=== PATIENT | male | born 1970 | race Caucasian/White ===

== ENCOUNTER 2018-05-08 23:56 | Emergency (ER) | END 2018-05-09 04:22 | disposition home or self-care (01) ==

== ENCOUNTER 2018-06-19 17:50 | Emergency (ER) | END 2018-06-20 01:00 | disposition left against medical advice (07) ==

== ENCOUNTER 2018-07-23 19:11 | Emergency (ER) | END 2018-07-23 20:55 | disposition home or self-care (01) ==

== ENCOUNTER 2018-08-01 21:57 | Inpatient (IN) | END 2018-08-09 18:48 | disposition home or self-care (01) | DRG 690 ==

== ENCOUNTER 2018-08-30 00:32 | Emergency (ER) | END 2018-08-30 05:55 | disposition home or self-care (01) ==

== ENCOUNTER 2018-11-07 18:56 | Emergency (ER) | payer SELFPAY ==
[~2018-11-07] VITALS: Ht 167.6 cm; Wt 78.1 kg
[~2018-11-07 18:56] MED LIST: FLUT1BLS INHALATION; MONT10TA24 PO; OMEP40CA6 PO; ONDA4TAB14 PO; PHEN-716 PO; TAMS-14 PO; ZOLP5TAB7 PO
[2018-11-07 18:59] VITALS: BP 109/69; PULSE 139; RESP 20; Ht 167.6 cm; Wt 78.1 kg
== END 2018-11-08 02:37 | disposition left against medical advice (07) ==
LOC: E/R 18:56
DX: Z53.21 Procedure and treatment not carried out due to patient leaving prior to being seen by health care provider (principal)

== ENCOUNTER 2019-06-12 17:48 | Emergency (ER) | payer OTHER ==
[~2019-06-12] VITALS: Ht 167.6 cm; Wt 79.2 kg
[~2019-06-12 17:48] MED LIST changes: +ALBU18HF INHALATION; +DOXY100T20 PO; +IBUP800T48 PO
[2019-06-12 17:52] VITALS: Ht 167.6 cm; Wt 79.2 kg
[2019-06-12] MEDS ORDERED: SODIUM CHLORIDE 0.9% 1L BAG IV* STA (17:59)
[2019-06-12] MEDS ORDERED: AZITHROMYCIN 500MG/NS (PMX) 250 ML IV STA (17:59)
[2019-06-12] MEDS ORDERED: ACETAMINOPHEN 325 MG TAB PO STA (17:59)
[2019-06-12] MEDS ORDERED: ALBUTEROL 0.083% (NEB) 2.5 MG/3 ML AMP NEB STA (17:59)
[2019-06-12] MEDS ORDERED: DEXAMETHASONE 10 MG/ML 1 ML INJ IV STA (17:59)
[2019-06-12] MEDS ORDERED: CEFTRIAXONE 1 GM/50 ML (PMX) 50 ML IVPB STA (17:59)
[2019-06-12] MEDS ORDERED: IPRATROPIUM (NEB) 0.5 MG/2.5 ML AMP NEB STA (17:59)
--- NOTE | 2019-06-12 18:44 | ERD ---
ER Documentation Chief Complaint Chief Complaint FEVER, WEAKNESS, SOB, ONSET 2 WEEKS HPI 48-year-old gentleman with a history of asthma, kidney stones with a history of infected kidney stone who presents to the emergency room with multiple complaints over the last week. He describes generalized weakness and fatigue and malaise. He is having cough with associated fever that is not alleviated by his regular breathing treatments. Patient is also scrubbing right flank and right lower quadrant pain similar to pain in the past related to his stones. Pain is moderate at this time. Low-grade fever at triage. ROS All systems reviewed and are negative except as per history of present illness. Medications Home Meds Active Scripts Ibuprofen* (Motrin*) 800 Mg Tab, 800 MG PO Q6H PRN for PAIN AND OR ELEVATED TEMP, #30 TAB Prov:ALYSON ZULETA MD 06/12/19 Doxycycline Hyclate* (Doxycycline Hyclate*) 100 Mg Tablet.dr, 100 MG PO BID for 7 Days, TAB Prov:ALYSON ZULETA MD 06/12/19 Albuterol Sulfate* (Ventolin HFA*) 18 Gm Hfa.aer.ad, 2 PUFF INHALATION Q4H, #1 INHALER Prov:ALYSON ZULETA MD 06/12/19 Ondansetron (Ondansetron Odt) 4 Mg Tab.rapdis, 4 MG PO Q6H PRN for NAUSEA AND/OR VOMITING, #10 TAB Prov:NERIS GUEVARA 08/30/18 Tamsulosin Hcl* (Flomax*) 0.4 Mg Cap.er.24h, 0.4 MG PO HS for 30 Days, CAP Prov:PHYLLIS JENKINS MD 08/09/18 Reported Medications Fluticasone/Vilanterol (Breo Ellipta 200-25 Mcg INH) 1 Each Blst.w.dev, 1 PUFF INHALATION DAILY, #1 INHALER 08/01/18 Montelukast Sodium* (Montelukast Sodium*) 10 Mg Tablet, 10 MG PO QHS PRN for NEEDED, #30 TAB 08/01/18 Omeprazole* (Omeprazole*) 40 Mg Capsule.dr, 40 MG PO NEEDED, #30 CAP 08/01/18 Zolpidem Tartrate* (Zolpidem Tartrate*) 5 Mg Tablet, 5 MG PO QHS PRN for INSOMNIA, #30 TAB 08/01/18 Phenazopyridine Hcl* (Phenazopyridine Hcl*) 100 Mg Tablet, 100 MG PO TID, TAB 08/01/18 Allergies Allergies: Coded Allergies: No Known Drug Allergies (Verified Allergy, Mild, 08/01/18) PMhx/Soc History of Surgery: Yes (stent placement, kidney stone removal,nephrostomy) Anesthesia Reaction: No Hx Neurological Disorder: No Hx Respiratory Disorders: Yes (asthma) Hx Cardiac Disorders: No Hx Psychiatric Problems: No Hx Miscellaneous Medical Probl: No Hx Alcohol Use: No Hx Substance Use: No Hx Tobacco Use: No Smoking Status: Never smoker FmHx Family History: No diabetes Physical Exam Vitals Vital Signs Date Temp Pulse Resp B/P (MAP) Pulse Ox O2 O2 Flow FiO2 Time Delivery Rate 06/12/19 98.9 105 25 124/90 100 Room Air 19:02 (101) 06/12/19 100.6 18:15 06/12/19 110 18 97 21 18:06 06/12/19 100.6 114 20 136/81 97 17:52 (99) Physical Exam General: Well developed, well nourished, no acute distress Head: Normocephalic, atraumatic. Eyes: Pupils equally reactive, EOM intact ENT: Moist mucous membranes Neck: Supple, no lymphadenopathy Respiratory: Lungs clear bilaterally, no distress Cardiovascular: RRR, no murmurs, rubs, or gallops Abdominal: Soft, non-tender, non-distended, no peritoneal signs : Deferred MSK: No edema, no unilateral swelling, 5/5 strength Neurologic: Alert and oriented, moving all extremities, normal speech, no focal weakness, no cerebellar signs Skin: No rash Psych: Normal mood Result Diagram: 06/12/19 1805 06/12/19 180 Results 24 hrs Laboratory Tests Test 06/12/19 18:05 06/12/19 18:11 06/12/19 19:06 White Blood Count 9.9 10^3/ul Red Blood Count 5.61 10^6/ul Hemoglobin 15.9 g/dl Hematocrit 47.3 % Mean Corpuscular Volume 84.3 fl Mean Corpuscular Hemoglobin 28.3 pg Mean Corpuscular 33.6 g/dl Hemoglobin Concent Red Cell Distribution Width 13.7 % Platelet Count 247 10^3/UL Mean Platelet Volume 10.5 fl Immature Granulocytes % 0.300 % Neutrophils % 66.8 % Lymphocytes % 24.3 % Monocytes % 7.2 % Eosinophils % 1.1 % Basophils % 0.3 % Nucleated Red Blood Cells % 0.0 /100WBC Immature Granulocytes # 0.030 10^3/ul Neutrophils # 6.6 10^3/ul Lymphocytes # 2.4 10^3/ul Monocytes # 0.7 10^3/ul Eosinophils # 0.1 10^3/ul Basophils # 0.0 10^3/ul Nucleated Red Blood Cells # 0.0 10^3/ul Prothrombin Time 12.0 Sec Prothrombin Time Ratio 0.9 INR International 0.88 Normalized Ratio Activated Partial Thromboplast 28.6 Sec Time Sodium Level 141 mmol/L Potassium Level 3.8 mmol/L Chloride Level 107 mmol/L Carbon Dioxide Level 23 mmol/L Anion Gap 11 Blood Urea Nitrogen 16 mg/dl Creatinine 1.08 mg/dl Est Glomerular Filtrat > 60 mL/min Rate mL/min Glucose Level 103 mg/dl Calcium Level 9.6 mg/dl Total Bilirubin 0.4 mg/dl Direct Bilirubin 0.00 mg/dl Indirect Bilirubin 0.4 mg/dl Aspartate Amino 46 IU/L Transf (AST/SGOT) Alanine 84 IU/L Aminotransferase (ALT/SGPT) Alkaline Phosphatase 98 IU/L Troponin I < 0.012 ng/ml Total Protein 8.0 g/dl Albumin 4.6 g/dl Globulin 3.40 g/dl Albumin/Globulin Ratio 1.35 POC Venous Lactate 1.0 mmol/L Urine Color YELLOW Urine Clarity CLEAR Urine pH 5.0 Urine Specific [place] 1.013 Urine Ketones 1+ mg/dL Urine Nitrite NEGATIVE mg/dL Urine Bilirubin NEGATIVE mg/dL Urine Urobilinogen NEGATIVE mg/dL Urine Leukocyte Esterase NEGATIVE Gianni/ul Urine Microscopic RBC 1 /HPF Urine Microscopic WBC 3 /HPF Urine Hemoglobin 1+ mg/dL Urine Glucose NEGATIVE mg/dL Urine Total Protein NEGATIVE mg/dl Current Medications Medications Dose Sig/Abelardo Start Time Status Last (Trade) Ordered Route PRN Stop Time Admin Dose Reason Admin Sodium 2,380 ml BOLUS OVER 2 06/12/19 DC 06/12/19 Chloride HOURS STAT 17:59 18:16 (NS) IV* 06/12/19 18:01 650 mg ONCE STAT 06/12/19 DC 06/12/19 Acetaminophen PO 17:59 18:15 (Tylenol 06/12/19 18:01 Tab) Ceftriaxone 50 ml @ ONCE STAT 06/12/19 DC 06/12/19 Sodium 100 mls/hr IVPB 17:59 18:15 06/12/19 18:28 Azithromycin 250 ml @ ONCE STAT 06/12/19 DC 06/12/19 250 mls/hr IV 17:59 18:54 06/12/19 18:58 Albuterol 2.5 mg ONCE STAT 06/12/19 DC 06/12/19 (Proventil NEB 17:59 18:06 0.083% (Neb)) 06/12/19 18:02 Ipratropium 0.5 mg ONCE STAT 06/12/19 DC 06/12/19 [place] NEB 17:59 18:06 (Atrovent 06/12/19 18:02 0.02% (Neb)) 10 mg ONCE STAT 06/12/19 DC 06/12/19 Dexamethasone IV 17:59 18:16 (Decadron) 06/12/19 18:02 Ketorolac 15 mg ONCE STAT 06/12/19 DC 06/12/19 Tromethamine IV 18:52 18:54 (Toradol) 06/12/19 18:53 Ondansetron 4 mg ONCE STAT 06/12/19 DC 06/12/19 HCl (Zofran IV 18:52 18:54 Inj) 06/12/19 18:53 Procedures/MDM EKG, MONITORS, & DIAGNOSTIC IMAGING: EKG: I reviewed and interpreted a 12-lead EKG. Rhythm: Normal sinus rhythm ST Changes: No contiguous ST segment elevations T waves: No contiguous T wave inversions Impression: No evidence of acute cardiac ischemia Chest x-ray: I reviewed and interpreted a 1 view of the chest Mediastinum: No enlargement Cardiac silhouette: No cardiomegaly Airspace: Clear lung fishman bilaterally without evidence of pneumothorax Bones: No evidence of fracture CT a/p IMPRESSION: 1. Stable nonobstructing multiple intrarenal calculi, as described above. No definite evidence for obstructive uropathy. 2. There is no hydronephrosis. There is mild nonspecific bilateral perinephric stranding. 3. Spinal hiatal hernia. 4.There are small patulous bilateral fat containing inguinal rings. 5. There is a stable 3 mm nodule at the left lung base. Follow up to exclude infectious, inflammatory, or neoplastic process. LAB INTERPRETATION: I reviewed the laboratory testing and it shows no evidence of acute process MEDICAL DECISION MAKING: The patient presents with multiple issues including possible pneumonia, asthma exacerbation and possible ureterolithiasis. Patient does have a low-grade fever with a history of sepsis related to infected stone. A broad work-up will be initiated. The patient has Sirs criteria with potential source of infection therefore code sepsis was initiated. However the patient is exquisitely well-appearing in the emergency room setting. ER COURSE: * Patient treated with appropriate IV fluid resuscitation. Lactic acid is normal. Patient given initial dose of ceftriaxone and azithromycin after blood cultures * Patient's vital signs improved. Symptoms improved. The patient's laboratory testing is reassuring. No evidence of significant infectious process. Chest x-ray with possible atelectasis. Urinalysis is negative. Patient has no evidence of ureteral stone. * Is a potentially a viral process with asthma exacerbation. Patient was treated with a breathing treatment and steroids * The patient can be safely discharged with close primary care follow-up. Empiric doxycycline will be reasonable to cover community acquired pneumonia. Return precautions were discussed and understood. CONSULTATION: None DISPOSITION PLAN: The patient does not have an identifiable emergent medical condition that warrants inpatient hospitalization at this time. The patient is deemed safe for discharge with outpatient follow-up. We discussed follow up with the patient's primary care doctor within 24 to 48 hours as needed. We also discussed return to the emergency room for worsening symptoms or worsening condition. Outpatient referral: None required Discharge Medications: Doxycycline, Ventolin Departure Diagnosis: Primary Impression: Community acquired pneumonia Laterality: unspecified laterality Qualified Codes: J18.9 - Pneumonia, unspecified organism Additional Impressions: Acute right flank pain Asthma exacerbation Asthma severity: unspecified severity Asthma persistence: unspecified Qualified Codes: J45.901 - Unspecified asthma with (acute) exacerbation Condition: ALYSON Del Toro MD Jun 12, 2019 18:44
[2019-06-12] MEDS ORDERED: ONDANSETRON 4 MG INJ IV STA (18:52)
[2019-06-12] MEDS ORDERED: KETOROLAC 15 MG INJ IV STA (18:52)
[2019-06-12 20:14] VITALS: BP 142/81; PULSE 98; RESP 25
== END 2019-06-12 20:15 | disposition home or self-care (01) ==
LOC: E/R 17:48
DX: J18.9 Pneumonia, unspecified organism (principal); R10.9 Unspecified abdominal pain; J45.901 Unspecified asthma with (acute) exacerbation; R40.2142 Coma scale, eyes open, spontaneous, at arrival to emergency department; R40.2362 Coma scale, best motor response, obeys commands, at arrival to emergency department; R40.2252 Coma scale, best verbal response, oriented, at arrival to emergency department
CPT/HCPCS: 36415; 71045; 74176; 80053; 81001; 83605; 84484; 85025; 85610; 85730; 87040; 87086; 93005; 94664; 96374; 96375; J0456; J0696; J1100; J7030; Z7502; Z7610

== ENCOUNTER 2019-08-31 18:01 | Emergency (ER) | payer OTHER ==
[~2019-08-31] VITALS: Ht 167.6 cm; Wt 79.4 kg
[~2019-08-31 18:01] MED LIST changes: +BEN25 PO; +DIPH1TAB PO; +DOXY-214 PO; -DOXY100T20 PO; +FAMO-96 PO; +OMEP40CA38 PO; -OMEP40CA6 PO; +PRED20TA PO
[2019-08-31 18:23] VITALS: Ht 167.6 cm; Wt 79.4 kg
[2019-08-31] MEDS ORDERED: ONDANSETRON 4 MG INJ IV STA (19:07)
[2019-08-31] MEDS ORDERED: morphine 10 MG INJ IV ONE (19:30)
[2019-08-31] MEDS ORDERED: SOD CHLORIDE 0.9% 500 ML IV STA (20:40)
[2019-08-31] MEDS ORDERED: SOD CHLORIDE 0.9% 1,000 ML IV STA (20:40)
[2019-08-31 22:52] VITALS: BP 128/84; PULSE 112; RESP 18
== END 2019-08-31 22:59 | disposition home or self-care (01) ==
LOC: E/R 18:01
DX: R10.84 Generalized abdominal pain (principal); R50.9 Fever, unspecified; R11.2 Nausea with vomiting, unspecified; R19.7 Diarrhea, unspecified; J45.909 Unspecified asthma, uncomplicated; Z98.61 Coronary angioplasty status
CPT/HCPCS: 36415; 71045; 74176; 80053; 81001; 83605; 84484; 85025; 85610; 85730; 87040; 87086; 93005; 96361; 96374; 96375; J2270; J2405; J7030; J7040; Z7502